=== PATIENT | female | born 1960 | race Caucasian/White ===

== ENCOUNTER → 2017-04-12 14:07 | Outpatient (CLI) | payer OTHER, SELFPAY ==
--- NOTE | 2017-04-12 14:08 | RAD_ITS ---
STUDY: X-RAY - RIGHT ANKLE REASON FOR EXAM: Female, 56 years old. Fracture. TECHNIQUE: 3 view(s) of the ankle. COMPARISON: None. FINDINGS: There is mild demineralization of the visualized distal tibia. There is a minimally displaced oblique fracture of the distal fibular diametaphysis. Normal tibiotalar articulation and ankle mortise. Normal visualized talus. There is a large plantar spur along the underside of an otherwise normal calcaneus. The visualized subtalar, talonavicular, calcaneocuboid and tarsal articulations are normal. The soft tissue structures are unremarkable. RAD/Ankle min 3 Views IMPRESSION: Minimally displaced fracture of the distal fibula without soft tissue swelling or dislocation. Electronically Signed: Javier Main DO at 17:07 EST Tel [phone], Service support ,
== END ==
PROVIDERS: Family Provider Internal Medicine; PCP Internal Medicine; Visit Provider Orthopaedic Surgery
DX: S82.831A Other fracture of upper and lower end of right fibula, initial encounter for closed fracture (principal); X58.XXXA Exposure to other specified factors, initial encounter
CPT/HCPCS: 73610

== ENCOUNTER → 2017-05-02 16:05 | Outpatient (CLI) | payer OTHER, SELFPAY ==
--- NOTE | 2017-05-02 16:09 | HPBD_ITS ---
STUDY: DUAL ENERGY X-RAY ABSORPTIOMETRY / DXA REASON FOR EXAM: Female, 56 years old. The patient is postmenopausal. Loss of height. TECHNIQUE: Bone Mineral Density (BMD) measurements of lumbar spine and bilateral hips were obtained. COMPARISON: None. FINDINGS: Lumbar Spine (L1-L4): g/cm2 (0.916) / T-score (-2.2) / Z-score (-1.1) Findings are suggestive of osteopenia with a moderate fracture risk. Left Femur Total: g/cm2 (0.811) / T-score (-1.6) / Z-score (-0.7) Left Femoral Neck: g/cm2 (0.805) / T-score (-1.7) / Z-score (-0.5) Right Femur Total: g/cm2 (0.740) / T-score (-2.1) / Z-score (-1.3) Right Femoral Neck: g/cm2 (0.935) / T-score (-0.7) / Z-score (0.4) HPBD/Dexa Bone Density Study (HP) IMPRESSION: The patient is considered osteopenic as outlined below according to World Atif Organization (WHO) criteria with a moderate fracture risk. Reference Information: The T-score is the number of standard deviations above or below the standard which is normal for young adults at their peak bone mineral density. The World Health Organization (WHO) interprets the T-scores as follows: Above -1 Normal bone density Between -1 and -2.5 Osteopenia Equal to / or below -2.5 Osteoporosis As a practical clinical guideline, osteopenia may be graded as follows: Mild -1 through -1.5 Moderate -1.6 through -2.0 Severe -2.1 through -2.4 The Z-score is the number of standard deviations above or below age-matched controls. A Z-score of less than -1.5 would be considered abnormal. References: 1. NIH Osteoporosis and Related Bone Diseases http://www.osteo.org 2. International Society for Clinical Densitometry http://www.iscd.org 3. National Osteoporosis Foundation http://www.nof.org Electronically Signed: Bernardo Gama MD at 8:47 EST Tel [phone], Service support ,
== END ==
PROVIDERS: Family Provider Internal Medicine; PCP Internal Medicine; Visit Provider Internal Medicine
DX: N95.9 Unspecified menopausal and perimenopausal disorder (principal)
CPT/HCPCS: 77080

== ENCOUNTER → 2017-05-10 12:43 | Outpatient (CLI) | payer OTHER, SELFPAY ==
--- NOTE | 2017-05-10 12:48 | RAD_ITS ---
STUDY: X-RAY - RIGHT ANKLE REASON FOR EXAM: Female, 56 years old. Follow up fracture TECHNIQUE: Three view(s) of the ankle were obtained. COMPARISON: April 12, 2017 FINDINGS: Bones: Cortical disruption is again seen in the distal fibula. A small spur is again seen off the inferior calcaneus. Joints: There is minimal widening of the mortise. Soft tissues: There is diffuse soft tissue swelling. RAD/Ankle min 3 Views IMPRESSION: A nondisplaced fracture is again seen in the distal right fibula. There is minimal widening of the ankle mortise. There is diffuse soft tissue swelling. Soft tissue swelling adjacent to the lateral malleolus is new compared to the prior study. Electronically Signed: Kaylie Mcmahon MD at 18:55 EST Tel Direct: [phone], Service support ,
== END ==
PROVIDERS: Family Provider Internal Medicine; PCP Internal Medicine; Visit Provider Orthopaedic Surgery
DX: S82.831A Other fracture of upper and lower end of right fibula, initial encounter for closed fracture (principal); X58.XXXA Exposure to other specified factors, initial encounter; Y93.9 Activity, unspecified; Y92.9 Unspecified place or not applicable; Y99.9 Unspecified external cause status
CPT/HCPCS: 73610

== ENCOUNTER → 2017-05-13 08:10 | Outpatient (CLI) | payer OTHER, SELFPAY ==
[2017-05-13 10:45] LABS: AST(SGOT) 26 U/L (15-37); Alanine Aminotransfer ALT/SGPT 44 U/L (13-56); Albumin, Serum 3.4 g/dL (3.2-5.0); Alkaline Phosphatase 160 U/L (45-117); Anion Gap 5 (5-15); BUN 18 mg/dL (7-18); BUN/Creat Ratio 24.5 RATIO (10-20); Calcium,Total 8.6 mg/dL (8.5-10.1); Chloride 109 mmol/L (98-107); Cholesterol 159 mg/dL (200); Creatinine, Serum 0.74 mg/dL (0.55-1.02); EST Glomerular Filtration Rate 86 mL/min (>60); Est Glom Filt Rate - Afr Amer 104 mL/min (>60); Globulin 3.3 g/dL (2.2-4.2); Glucose 99 mg/dL (74-106); High Density Lipoprotein 71 mg/dL; Potassium 4.7 mmol/L (3.5-5.1); Protein, Total 6.7 g/dL (6.4-8.2); Sodium Level 144 mmol/L (136-145); Triglycerides 64 mg/dL; Very Low Density Lipoprotein 13 mg/dL (5-40)
[2017-05-13 10:46] LABS: Hemoglobin A1c 5.2 % (4.2-6.3)
[2017-05-13 10:50] LABS: Vitamin D,25 Hydroxy 33.6 ng/mL (29.95-100.01)
== END ==
PROVIDERS: Family Provider Internal Medicine; PCP Internal Medicine; Visit Provider Internal Medicine
DX: K76.0 Fatty (change of) liver, not elsewhere classified (principal); M81.0 Age-related osteoporosis without current pathological fracture
CPT/HCPCS: 36415; 80053; 80061; 82306; 83036

== ENCOUNTER 2017-08-12 15:00 | Outpatient (RCR) | payer OTHER, SELFPAY ==
--- NOTE | 2017-04-30 10:30 | HP.PTEVAL ---
Patient's Visit Information THOMAS CAI is a 56 year old F referred to Physical Therapy by DO RAFFY Cruz with a diagnosis of R distal fibular fx. Date of Evaluation: 04/26/17 Physical Therapist: Rashaad Hayward - Visit Plan Frequency: 2-3x /Week Duration: 6 Weeks Plan: Start with [facility] R ankle strengthening/ROM, progress tolerance to WBing, BAPS board, proprioception activities, gait progression. May use modalities to reduce symptooms. - Subjective Subjective: Pt. is here today for her initial evaluation with diagnosis of R ankle fracture (distal fibula). Pt. arrives today with FWW and in CAM boot. Pt. reports having injury on 02/14/17. Pt. was in a plastar cast for 6 weeks and recently had removed. Pt. is now in CAM walker and is WBAT. Pt. reports having consistent use of FWW for mobility and reports high levels of pain during WBing on RLE. Pt. reports she is not driving, but is going back to work for a few hours in the office. Pt. continues to describe increased edema with leg in dependent positioning and is not wear a compression sleeve. Pt. reports pain at distal lateral aspect of ankle and throughout foot. She is also complaining of medial R knee pain and hip pain as well. Pt. reports she has increased pain with all walking, unable to complete stairs, mobility of ankle and txs. Pt. is unable to cloud systems administrator shower and reports minimal ability to walk out in community. Pt. is hopeful to increase stability and pain in order to get back to work without limitations. - Pain R ankle Pain Intensity (Out of 10): 4 Pain Intensity Range: 2, 8 - Objective POSTURE: Pt. is able to stand with FWW (light use), increased wt. shift to L side, and lateral lean to L side. PALPATION: Pt. has increased tenderness along distal fibula, along lateral aspect of ankle/foot. Pt. has mild edema throughout, non pitting. No redness or increased warmth. NEUROLOGICAL: Pt. has normal sensation to light and sharp touch of bilateral LEs. Pt. has 2+ achilles and patellar DTR. Pt. unable to effectively rise on heels or toes due to incresed pain and weakness. ROM: R ankle- DF 10deg, PF 45deg, INV 20deg, EVR 8deg. R knee- 0-0-129deg; hip- flexion 120deg, abd 50deg, ext 10deg, ER/IR with in normal limits. L- ankle- DF 18deg, PF 55deg, INV 20deg, EVR 20deg. L knee- 0-0-134deg, hip- flexion 120deg, abd 50deg, ext 10deg, IR/ER within normal limits. MMT: RLE- ankle DF 4/5, PF 4/5; INV 4/5, EVR 4-/5 increase NW. R knee- ext 4+/5, flexion 4/5; hip- flexion 4+/5, abd 4/5, ext 4/5. LLE- ankle 5/5 throughout; knee 5/5 throughout; hip- flexion 4+/5, abd 4/5, ext 4+/5. Core strength- poor. GAIT: Pt. ambulates with FWW with proper use. Pt has decreased rocker moments due to CAM boot and pt. decline to trial out of boot this date due to higher levels of pain. PT. trained in stair negotiation with use of 1 HR and FWW. Pt. able to complete with step to pattern without assistance. - Goals Goal 1:: Pt. to be I with HEP. Goal Time Frame: 4-6 Weeks Goal 2:: Pt. to have increased R ankle ROM by 25% in all directions increasing tolerance to all mobility Goal Time Frame: 4-6 Weeks Goal 3:: Pt. to ambulat without AD unlimited distances with 0-1/10 pain in R ankle allowing increased tolerance to all community mobility. Goal Time Frame: 4-6 Weeks Goal 4:: Pt. to have increased RLE strength by 1/2 grade of all effected musculature to reduce stress applied to R ankle with all functional mobility. Goal Time Frame: 4-6 Weeks Goal 5:: Pt. to negotiate 1 flight of steps with 1 HR without AD with reciprocal pattern with 0-1/10 pain allowing for increased tolerance to mobility in home. Goal Time Frame: 4-6 Weeks Goal 6:: Pt. to return to work with 0-1/10 pain in R ankle. Goal Time Frame: 4-6 Weeks - Rehabilitation Potential Physical Therapy Diagnosis: Pt. has signs and symptoms consistent with R ankle hypombility, weakness, difficulty with gait, increased pain and decreased proprioception s/p R distal fibular fx. Pt. would benefit from PT to increase strength, ankle ROM, BLE stability, progress gait from AD, decrease pain and get back to all work related activities with decreased symptoms. Rehabilitation Potential: Good - Anticipated Interventions Patient/Client Instruction: Educate patient on: Condition, Plan of Care, Risk Factors, Benefits of Fitness Program For the Purpose of:: To foster healthy habits, To improve decision making, To facilitate caregiver knowledge, To improve self management, To prevent re-injury, To improve ability to perform tasks related to life management, To improve tolerance to ADL's Therapeutic Exercise to Include: Strength training, Power training, Endurance training, Balance training, Body mechanics, Postural training, Flexibilty training, Gait and locomotor training, Passive ROM, Active ROM For the Purpose of:: To decrease pain, To decrease swelling/inflammation, To increase ROM, To improve nutrient delivery to tissue, To increase oxygenation perfusion, To improve muscle performance and motor function, To improve ability to perform ADL's, To increase tolerance to activity/condition/position, To improve performance and independence with ADL's, To decrease soft tissue restriction, To increase flexibility/ROM, To improve endurance, To improve balance, To improve safety with gait IF ES: Yes Cryotherapy (ice pack, ice massage): Yes Thermo therapy (hot pack): Yes For the Purpose of:: To decrease pain, To decrease swelling/inflammation, To increase ROM Thank you for the opportunity to evaluate your patient. For Medicare and Medicare HMO plans, please review the plan of care and approve it. It will need to be FAXED BACK to us at [phone] for Medicare purposes. Please let me know if there are questions or concerns regarding this plan of care. Physician Signature: Date:
--- NOTE | 2017-08-12 15:00 | DT_ITS ---
This patient was seen during an EMR downtime August 05, 2017 - August 12, 2017. This patient may have a combination of paper and electronic documentation or all paper documentation. All documentation is viewable within the e-chart portion of [email or web address] for each patient visit.
--- NOTE | 2017-08-14 07:57 | HP.PTDCSUM_ITS ---
HP - PT D/C Summary It has been my pleasure to treat THOMAS CAI under orders from Bartolome Amato DO , for the diagnosis of R distal fibular fx for a total of 18 visit(s). Discharge Date: 08/12/17 Please see the following information for a summary of their discharge status. - Subjective Subjective: Pt. reports I am doing okay, but I still get pain on the outside of my ankle. She reports frequent edema at lateral ankle as well. Pt. concerned and believes she needs an xray. Pt. reports being HEP compliant. Pt. reports being 80% bettter overall. - Pain R ankle Pain Intensity (Out of 10): 2 - Objective Objective/Function: ROM- full without increase in symptoms of R ankle. MMT: 5/ 5 throughout; except 5-/5 ankle EVR with mild increase NW. Ankle bump no pain. firm pressure/tapping to lateral mallelus and distal fibula no pain. Pt. had increased symptoms with palaption of CFL. Minimal edema noted this date at lateral ankle. No brusing noted. Gait- Pt. has slight antalgic patter during R stance phase, otherwise normal. Stairs mild increase in symptoms with descending , otherwise normal. Pt. has a good handle on her HEP and how to progress. Pt. has improved ROM and strength. She does have slight pain with ambulation that does increase when not taking medications. Pt. is tender at CFL. Pt. educated to continue with proprioception and stability exercises, pt. consents. Pt. to follow up with physician as needed. Due to electronic downtime procedure, the information from August 05 through the August 11 was electronically scanned into the medical record. - Goals Goal 1:: Pt. to be I with HEP. Goal Progress: Goal Met Goal 2:: Pt. to have increased R ankle ROM by 25% in all directions increasing tolerance to all mobility Goal Progress: Goal Met Goal 3:: Pt. to ambulat without AD unlimited distances with 0-1/10 pain in R ankle allowing increased tolerance to all community mobility. Goal Progress: Goal Met Goal 4:: Pt. to have increased RLE strength by 1/2 grade of all effected musculature to reduce stress applied to R ankle with all functional mobility. Goal Progress: Goal Met Goal 5:: Pt. to negotiate 1 flight of steps with 1 HR without AD with reciprocal pattern with 0-1/10 pain allowing for increased tolerance to mobility in home. Goal Progress: Goal Met Goal 6:: Pt. to return to work with 0-1/10 pain in R ankle. Goal Progress: Goal Met - Plan Plan: Pt to be DC to HEP at this point in time. - D/C Information Discharge Comments: Pt. progressed with ROM, strengthening, proprioception exercises. She does have slight edema and pain with increased ambulation, but is slowly progressing. She was instructed to continue with balance and strengthening exercises for HEP. Pt. to follow up with physician as needed, pt. consents. If there are questions or concerns regarding this patient's physical therapy, please feel free to call me at [phone]. Thank you for the referral of this patient. Sincerely, Rashaad Hayward
== END 2017-08-12 19:00 | disposition home or self-care (01) ==
LOC: PT 15:00
PROVIDERS: Family Provider Internal Medicine; PCP Internal Medicine; Visit Provider Orthopaedic Surgery
DX: S82.891D Other fracture of right lower leg, subsequent encounter for closed fracture with routine healing (principal)
CPT/HCPCS: 97016; 97110; 97161; 97530

== ENCOUNTER → 2017-08-21 15:34 | Outpatient (CLI) | payer OTHER, SELFPAY ==
--- NOTE | 2017-08-21 15:36 | RAD_ITS ---
STUDY: X-RAY - RIGHT ANKLE REASON FOR EXAM: Female, 57 years old. Follow-up fracture. TECHNIQUE: 3 view(s) of the ankle. COMPARISON: May 10, 2017. FINDINGS: Normal visualized distal tibia. There is a healed fracture of the distal fibula. Normal tibiotalar articulation and ankle mortise. Normal visualized talus. Again seen is a plantar spur along the underside of the calcaneus. The visualized subtalar, talonavicular, calcaneocuboid and tarsal articulations are normal. Continued soft tissue swelling about the ankle. RAD/Ankle min 3 Views IMPRESSION: Healed fracture of the distal fibula with continued soft tissue swelling. Electronically Signed: Javier Main DO at 16:14 EDT Tel [phone], Service support ,
== END ==
PROVIDERS: Family Provider Internal Medicine; PCP Internal Medicine; Visit Provider Orthopaedic Surgery
DX: S82.831A Other fracture of upper and lower end of right fibula, initial encounter for closed fracture (principal); X58.XXXA Exposure to other specified factors, initial encounter; Y93.9 Activity, unspecified; Y92.9 Unspecified place or not applicable; Y99.9 Unspecified external cause status
CPT/HCPCS: 73610